=== PATIENT | female | born 1945 | race Caucasian/White ===

== ENCOUNTER 2022-04-11 11:49 | Inpatient (IN) ==
[2022-04-11] MEDS ORDERED: 0.9 % Sodium Chloride 500 ML IVC ONE (15:21)
[2022-04-11 16:59] LABS: Bilirubin,Urine Negative (Negative); Blood,Urine Negative (Negative); Clarity,Urine Clear (Clear); Color,Urine Light-Yellow (Yellow); Glucose,Urine (UA) Normal (Normal); Hyaline Casts,Urine Few per lpf (None Seen); Ketones,Urine Negative (Negative); Leukocyte Esterase,Urine Small (Negative); Mucus,Urine Few per lpf (None-Few); Nitrite,Urine Negative (Negative); Protein,Urine Negative (Neg-Trace); RBC,Urine 0-3 per hpf (0-3); Specific Gravity,Urine 1.012 (1.010-1.025); Squamous Epithelial Cell,Urine Few per hpf (None-Few); Urobilinogen,Urine Normal (Normal); WBC,Urine 0-3 per hpf (0-3)
[2022-04-11 17:12] LABS: Calcium 9.5 mg/dL (8.6-10.3); Potassium 3.9 mEq/L (3.5-5.1)
[2022-04-11] MEDS ORDERED: Ondansetron 4 MG/2 ML VIAL IVP PRN (20:47)
[2022-04-11] MEDS ORDERED: Naloxone 0.4 MG/ML INJ IVP PRN (20:47)
[2022-04-12] MEDS: 0.9 % Sodium Chloride 1,000 ML IVC SCH ×3 (02:22→14:37)
[2022-04-12 08:42] LABS: Protein/Creatinine Ratio,Urine 0.29 mg/mg (0.00-0.20); Sodium, Urine 26.6 mEq/L
[2022-04-12 11:32] LABS: Basophils % 0.4 %; Eosinophils # 0.1 K/mcL (0.0-0.6); Eosinophils % 1.4 %; Hematocrit 40.5 % (35.3-44.9); Hemoglobin 13.2 g/dL (11.5-15.4); Immature Granulocytes % 0.4 % (0-4); Lymphocytes # 1.2 K/mcL (0.6-4.6); Lymphocytes % 15.2 %; Mean Corpuscular HGB Conc 32.6 g/dL (31.6-35.5); Mean Corpuscular Hemoglobin 29.3 pg (28.0-33.3); Mean Corpuscular Volume 89.8 fL (83.0-100.0); Mean Platelet Volume 9.2 fL (9.4-12.4); Monocytes # 0.6 K/mcL (0.0-1.3); Monocytes % 7.9 %; Platelet Count 245 K/mcL (140-400); Red Blood Count 4.51 M/mcL (3.82-4.97); Red Cell Distribution Width 13.5 % (11.5-14.5); Segmented Neutrophils % 74.7 %
[2022-04-12 11:43] LABS: INR 1.1; Prothrombin Time 12.4 Seconds (9.4-12.1)
[2022-04-12 11:45] LABS: Activated Partial Thrombo Time 27.7 Seconds (26.0-36.0)
[2022-04-12 11:51] LABS: Calcium 8.6 mg/dL (8.6-10.3); Potassium 3.6 mEq/L (3.5-5.1)
[2022-04-12] MEDS: *HR* Heparin 5,000 UNIT/ML VIAL SQ SCH ×2 (14:37→21:12)
[2022-04-12] MEDS: *HR* OxyCODONE Oral Soln 5 MG/5 ML UD.LIQ PO PRN (21:11)
[2022-04-13] MEDS: 0.9 % Sodium Chloride 1,000 ML IVC SCH ×3 (00:16→18:25)
[2022-04-13] MEDS ORDERED: *HR* LORazepam 2 MG/ML VIAL IVP ONE (01:55)
[2022-04-13] MEDS: *HR* Heparin 5,000 UNIT/ML VIAL SQ SCH ×3 (06:08→22:08)
[2022-04-13] MEDS: Cholecalciferol (D-3) 1,000 UNIT (25MCG) TABLET PO SCH (08:19)
[2022-04-13 09:27] LABS: Basophils % 0.3 %; Eosinophils % 0.3 %; Hematocrit 39.2 % (35.3-44.9); Hemoglobin 12.3 g/dL (11.5-15.4); Immature Granulocytes % 0.3 % (0-4); Lymphocytes # 0.8 K/mcL (0.6-4.6); Lymphocytes % 12.5 %; Mean Corpuscular HGB Conc 31.4 g/dL (31.6-35.5); Mean Corpuscular Hemoglobin 28.7 pg (28.0-33.3); Mean Corpuscular Volume 91.6 fL (83.0-100.0); Mean Platelet Volume 9.5 fL (9.4-12.4); Monocytes # 0.6 K/mcL (0.0-1.3); Monocytes % 9.1 %; Neutrophils # 5.1 K/mcL (1.6-8.9); Platelet Count 208 K/mcL (140-400); Red Blood Count 4.28 M/mcL (3.82-4.97); Red Cell Distribution Width 13.5 % (11.5-14.5); Segmented Neutrophils % 77.5 %; White Blood Count 6.6 K/mcL (4.3-11.1)
[2022-04-13 09:32] LABS: Calcium 7.8 mg/dL (8.6-10.3); Magnesium 1.9 mg/dL (1.6-2.6); Potassium 3.8 mEq/L (3.5-5.1)
[2022-04-13] MEDS ORDERED: *HR* Promethazine 25 MG/ML VIAL IM PRN (13:30)
[2022-04-13] MEDS: Haloperidol Lactate 5 MG/ML VIAL IVP PRN ×2 (16:18→22:08)
[2022-04-14] MEDS: 0.9 % Sodium Chloride 1,000 ML IVC SCH ×2 (02:33→06:41)
[2022-04-14 05:18] LABS: Basophils % 0.5 %; Eosinophils # 0.1 K/mcL (0.0-0.6); Eosinophils % 0.9 %; Hematocrit 36.1 % (35.3-44.9); Hemoglobin 11.3 g/dL (11.5-15.4); Immature Granulocytes % 0.2 % (0-4); Lymphocytes # 1.2 K/mcL (0.6-4.6); Lymphocytes % 19.2 %; Mean Corpuscular HGB Conc 31.3 g/dL (31.6-35.5); Mean Corpuscular Hemoglobin 28.8 pg (28.0-33.3); Mean Corpuscular Volume 92.1 fL (83.0-100.0); Mean Platelet Volume 9.2 fL (9.4-12.4); Monocytes # 0.7 K/mcL (0.0-1.3); Monocytes % 10.7 %; Neutrophils # 4.3 K/mcL (1.6-8.9); Platelet Count 194 K/mcL (140-400); Red Blood Count 3.92 M/mcL (3.82-4.97); Red Cell Distribution Width 13.6 % (11.5-14.5); Segmented Neutrophils % 68.5 %; White Blood Count 6.3 K/mcL (4.3-11.1)
[2022-04-14 05:38] LABS: Calcium 7.6 mg/dL (8.6-10.3); Potassium 3.5 mEq/L (3.5-5.1)
[2022-04-14] MEDS: *HR* Heparin 5,000 UNIT/ML VIAL SQ SCH ×3 (06:16→21:27)
[2022-04-14 07:54] LABS: Thyroid Stimulating Hormone 0.246 mcIU/mL (0.340-5.600)
[2022-04-14] MEDS: Aspirin Enteric Coated 81 MG Tablet PO SCH (09:34)
[2022-04-14] MEDS: Cholecalciferol (D-3) 1,000 UNIT (25MCG) TABLET PO SCH (09:34)
[2022-04-14] MEDS: *HR* OxyCODONE Oral Soln 5 MG/5 ML UD.LIQ PO PRN ×2 (12:19→17:43)
[2022-04-14 15:40] LABS: Folate > 22.3 ng/mL (3.0-16.0); Vitamin B12 346 pg/mL (250-1100)
[2022-04-14] MEDS: QUEtiapine Fumarate 25 MG TABLET PO SCH (21:28)
[2022-04-15 02:28] LABS: Basophils % 0.3 %; Eosinophils # 0.1 K/mcL (0.0-0.6); Eosinophils % 1.2 %; Hematocrit 34.8 % (35.3-44.9); Immature Granulocytes % 0.2 % (0-4); Lymphocytes # 1.6 K/mcL (0.6-4.6); Lymphocytes % 16.9 %; Mean Corpuscular HGB Conc 31.6 g/dL (31.6-35.5); Mean Corpuscular Hemoglobin 28.9 pg (28.0-33.3); Mean Corpuscular Volume 91.6 fL (83.0-100.0); Mean Platelet Volume 9.4 fL (9.4-12.4); Monocytes # 1.2 K/mcL (0.0-1.3); Monocytes % 12.9 %; Neutrophils # 6.3 K/mcL (1.6-8.9); Platelet Count 184 K/mcL (140-400); Red Cell Distribution Width 13.5 % (11.5-14.5); Segmented Neutrophils % 68.5 %; White Blood Count 9.3 K/mcL (4.3-11.1)
[2022-04-15 02:46] LABS: Calcium 7.7 mg/dL (8.6-10.3); Potassium 3.4 mEq/L (3.5-5.1)
[2022-04-15] MEDS: *HR* Heparin 5,000 UNIT/ML VIAL SQ SCH ×3 (05:44→21:19)
[2022-04-15] MEDS: Cholecalciferol (D-3) 1,000 UNIT (25MCG) TABLET PO SCH (07:46)
[2022-04-15] MEDS: Aspirin Enteric Coated 81 MG Tablet PO SCH (07:47)
[2022-04-15] MEDS: amLODIPine 5 MG TABLET PO SCH (08:17)
[2022-04-15] MEDS: Artificial Tears SOLN 15 ML BOTTLE BOTH EYES SCH ×2 (16:23→21:18)
[2022-04-15] MEDS: *HR* OxyCODONE Oral Soln 5 MG/5 ML UD.LIQ PO PRN (18:01)
[2022-04-15] MEDS: QUEtiapine Fumarate 25 MG TABLET PO SCH (21:18)
[2022-04-15 23:13] VITALS: O2SAT 94
[2022-04-16] MEDS: *HR* OxyCODONE Oral Soln 5 MG/5 ML UD.LIQ PO PRN ×2 (03:39→09:35)
[2022-04-16] MEDS: *HR* Heparin 5,000 UNIT/ML VIAL SQ SCH (05:47)
[2022-04-16 07:44] VITALS: BP 166/74; PULSE 91; TEMP 98.5
[2022-04-16] MEDS: Artificial Tears SOLN 15 ML BOTTLE BOTH EYES SCH (08:19)
[2022-04-16] MEDS: Aspirin Enteric Coated 81 MG Tablet PO SCH (08:20)
[2022-04-16] MEDS: Cholecalciferol (D-3) 1,000 UNIT (25MCG) TABLET PO SCH (08:20)
[2022-04-16] MEDS: amLODIPine 5 MG TABLET PO SCH (08:20)
[2022-04-16 10:47] LABS: Influenza A PCR Negative (Negative); Influenza B PCR Negative (Negative); Resp. Syncytial Virus PCR Negative (Negative)
[2022-04-16 10:48] LABS: SARS-CoV-2 by PCR (In House) Negative (Negative)
== END 2022-04-16 11:25 | DRG 536 ==
LOC: 2ANU 11:49 → EMEROOARM 11:49 → SUATTDRO 04-12 07:37 → 2ANU 04-12 08:58
PROVIDERS: ADMIT Internal Medicine; ATTEND Family Medicine